=== PATIENT | male | born 1995 | race Caucasian/White ===

== ENCOUNTER 2017-02-21 08:47 | Outpatient (CLI) | payer BC ==
--- NOTE | 2017-02-21 15:32 | Diagnostic Imaging Report ---
[facility] [id number] [facility].[address] [id number] Report Submission Date: Feb 21, 2017 3:09:31 PM CDT Patient Study Name: ORLANDO STATON Date: Feb 21, 2017 8:49:27 AM CDT Modality Type: CR Gender: M Description: LOWER EXTREMITY : 89 Institution: [facility] Physician: THAI TEJADA - OP Left knee 3 views Clinical history: Left knee pain after football injury No visible fracture, dislocation or bone destruction. No joint effusion. Left patella is normal . Impression: Normal left knee including left patella Electronically signed on Feb 21, 2017 3:09:31 PM CDT by: Jose MERRITT
== END 2017-02-21 08:50 ==
LOC: RAD 08:47
PROVIDERS: ATTEND Family Medicine
DX: M25.562 Pain in left knee (principal)
CPT/HCPCS: 73562